=== PATIENT | male | born 1980 | race Caucasian/White ===

== ENCOUNTER 2022-09-28 07:47 | Emergency (ER) | payer OTHER, SELFPAY ==
[2022-09-28] VITALS (28 sets, daily range): BP systolic 121–162; BP diastolic 70–94; PULSE 48–68; RESP 14–21; TEMP 36.9; O2SAT 95–100
--- NOTE | ~2022-09-28 | XR_ITS ---
EXAMINATION: XR chest 2V DATE: 09/28/2022 08:14 INDICATION: Right-sided chest pain TECHNIQUE: PA and lateral views of the chest are obtained. COMPARISON: None available FINDINGS: The lungs are free of acute opacities. No pleural effusion or pneumothorax. The cardiomedia stinal silhouette is normal. The visualized bones and soft tissues are unremarkable. IMPRESSION: 1. No acute cardiopulmonary abnormality. Reviewed, dictated and finalized at location L. URE WRITER
--- NOTE | 2022-09-28 07:49 | ECG_ITS ---
Measurements Intervals [place] Rate: 59 P: -4 DE: 153 QRS: 32 QRSD: 96 T: 42 QT: 400 QTc: 398 Interpretive Statements SINUS BRADYCARDIA NO PREVIOUS ECG AVAILABLE FOR COMPARISON Electronically Signed On 09-28-2022 14:55:08 [employer]OU[employer] SPECIALIST by Lorna Suh M.D.
[2022-09-28 08:04] LABS: Basophils Percent Auto 0.6 % (0.2-1.2); Eosinophils Absolute Auto 0.1 K/mm3 (0-0.3); Eosinophils Percent Auto 1.2 % (0-4.4); Hematocrit 44.5 % (42.0-52.0); Hemoglobin 14.6 g/dL (14.0-18.0); Immature Granulocyte Absolute 0.01 K/mm3 (0.00-0.031); Immature Granulocyte Percent A 0.1 % (0-0.5); Lymphocytes Percent Auto 26.2 % (18.3-44.2); Mean Corpuscular HGB Conc 32.8 g/dl (32-36); Mean Corpuscular Hemoglobin 28.7 pg (26-34); Mean Corpuscular Volume 87.4 fl (80-100); Monocytes Absolute Auto 0.4 K/mm3 (0.1-0.6); Monocytes Percent Auto 5.8 % (2.6-8.5); Neutrophils Absolute Auto 4.8 K/mm3 (1.3-6.7); Neutrophils Percent Auto 66.1 % (45.5-73.1); Platelet Count Result 273 k/mm3 (150-375); Red Blood Count 5.09 M/mm3 (4.6-6.20); Red Cell Distribution Width 13.4 % (11.5-14.5); White Blood Count 7.3 K/mm3 (4.5-10.0)
[2022-09-28 08:14] LABS: Prothrombin Time 13.1 Seconds (11.1-14.7)
[2022-09-28 08:15] LABS: Partial Thromboplastin Time 26.7 SECONDS (22.3-36.8)
[2022-09-28 08:24] LABS: Alanine Aminotransferase 32 U/L (6-50); Albumin Level 4.3 g/dL (3.5-5.1); Alkaline Phosphatase 101 U/L (38-126); Anion Gap 7 mmol/L (8-16); Aspartate Amino Transferase 37 U/L (17-59); Bilirubin,Total 0.7 mg/dL (0.2-1.3); Blood Urea Nitrogen 10 mg/dL (9-20); Calcium 8.4 mg/dL (8.4-10.2); Carbon Dioxide 27 mmol/L (22-30); Chloride 106 mmol/L (98-107); Estimated CRCL calculation 175 ml/min; Estimated Glomerular Filt Rate > 60; Glucose 96 mg/dL (65-110); Lipase 67 U/L (23-300); Potassium 3.9 mmol/L (3.4-5.0); Sodium 140 mmol/L (137-145)
[2022-09-28 08:25] LABS: Troponin I < 0.012 ng/mL (0.000-0.034)
[2022-09-28] MEDS: ASPIRIN 81 MG CHEWABLE TABLET 324 MG PO (08:26)
--- NOTE | 2022-09-28 10:13 | ED.GENADULT ---
HPI - General Adult General Chief complaint: Chest Pain Stated complaint: chest pain with SOB Time Seen by Provider: 09/28/22 08:18 History of Present Illness HPI narrative: 42-year-old male presented to the emergency department for evaluation of chest pain. Patient states 30 minutes prior to arrival he was driving in his car when he had a short lasting right-sided chest pain. Patient states the pain was just a flash of pain. Patient states the pain itself did not radiate to his neck back or arms. Patient states he did feel flushed after the initial pain. Patient denies any associated nausea vomiting or diaphoresis. Patient denies any associated shortness of breath. Patient states when he does take a deep breath that he does have some residual right-sided chest tightness but denies any current pain. At rest patient denies any chest tightness. Patient did have a stress test approximately 10 years ago when he was diagnosed with atrial flutter. Patient has not had cardiac follow-up since then patient states he no longer takes the atenolol he was prescribed for his atrial flutter at the time. Patient denies any prior history of PE DVT, patient denies any recent long car rides or plane trips. Patient denies any recent surgeries, hormone replacement or falls or injuries. Patient states he is not diabetic, has no history of high cholesterol or hypertension. Related Data Allergies Allergy/AdvReac Type Severity Reaction Status Date / Time No Known Allergies Allergy Mild Verified 09/28/22 07:48 Review of Systems Review of Systems: CONSTITUTIONAL: Denies fever, chills, or sweats. EYES: Denies visual changes, redness, or discharge. ENT: Denies rhinorrhea, congestion, sore throat, or otalgia. CARDIOVASCULAR: See HPI RESPIRATORY: Denies cough or dyspnea. GASTROINTESTINAL: Denies abdominal pain, nausea, vomiting, or diarrhea. GENITOURINARY: Denies dysuria or hematuria. SKIN: Denies rash or itching. MUSCULOSKELETAL: Denies back pain, joint pain, or myalgia. NEUROLOGIC: Denies headache, numbness, or weakness. [facility] Past Medical History Medical History BMI 45.0-49.9, adult Body mass index (BMI) 40.0-44.9, adult Depression Gastroesophageal reflux disease without esophagitis Neck pain Family History Family History Other Diabetes mellitus Family history of lung cancer Hypertension Social History Social History Smoking status: Never smoker Second hand tobacco smoke exposure: No Alcohol intake: former Substance use: never Substance use type: does not use Exam Narrative: APPEARANCE: Well appearing, no pain, no distress, well-nourished. HEAD: normocephalic, atraumatic. EYES: PERRLA/EOMI, conjunctivae clear. NOSE: Normal no drainage EARS:TMS clear with good light reflex. THROAT: Pharynx clear, no exudate. NECK: Supple. No adenopathy, no masses. RESPIRATORY: Airway patent, respirations nonlabored. Clear to auscultation bilaterally, no rales, rhonchi, wheezing. CARDIOVASCULAR: Regular rate and rhythm without murmurs rubs or gallops. ABDOMINAL: Soft, nontender, nondistended, normal bowel sounds MUSCULOSKELETAL: Moves all extremities. Strength/ROM intact, No edema, No calf tenderness. NEURO: Alert. Cranial nerves II through XII intact. Good gait. Good coordination SKIN: Warm, dry. Normal Color PSYCHIATRIC: Normal affect/mood. Course Course Emergency Course: 42-year-old male presented to the emergency department for evaluation of short lasting chest pain. Differential diagnosis for the patient's symptoms did include but were not limited to pneumonia, costochondritis, PE, ACS, pneumothorax. patient's EKG showed normal sinus rhythm with no evidence of acute STEMI. Patient was afebrile with no leukocytosis. Patient did have negative serial troponins. Patient
[2022-09-28 11:16] LABS: Troponin I < 0.012 ng/mL (0.000-0.034)
== END 2022-09-28 12:26 | disposition home or self-care (01) ==
PROVIDERS: Emergency Provider Emergency Medicine; PCP Family Medicine
DX: R07.89 Other chest pain (principal); K21.9 Gastro-esophageal reflux disease without esophagitis; R00.1 Bradycardia, unspecified
CPT/HCPCS: 36415; 71046; 80053; 83690; 84484; 85025; 85610; 85730; 93005; 99284; A9270

== ENCOUNTER 2024-04-30 14:17 | Outpatient (CLI) | payer BC, SELFPAY ==
--- NOTE | 2024-04-30 14:37 | ECHO_ITS ---
Patient Info Name: Kwame Sharma Age: 44 years : 1980 Gender: Male Ht: 79 in Wt: 420 lbs BSA: 3.34 m2 HR: 61 bpm BP: 115 / 79 mmHg Heart Rhythm: Sinus Rhythm Technical Quality: Fair Exam Date: 04/30/2024 2:51 PM Exam Location: Echo Lab Patient Status: Outpatient Admit Date: 04/30/2024 Staff Ordering Physician: Barbara Winkler PAC Grease Buffer: Margie Vang RDCS Attending Provider: Barbara Winkler Referring Physician: Peterson ALVAREZ; Exam Type: CA echo dop color flow w con Study Info Indications R06.02 - Shortness of breath Complete two-dimensional, color flow and Doppler transthoracic echocardiogram is performed with contrast to opacify the left ventricle and to improve the deliniation of the left ventricle endocardial borders. Contrast/Agitated Saline Contrast/Ag. Saline: Definity Amount: 2.00 ml Administered By: Margie Vang RDCS Existing IV Access: No New IV Access: Left Site Condition: IV removed Summary 1. Definity contrast administered improved wall motion interpretation. 2. Left ventricular chamber dimension is normal. 3. Left ventricular systolic function is normal, estimated at 60-65%. 4. The left ventricular diastolic function is grade I diastolic dysfunction. 5. E/e' 5 is not elevated. 6. There is trace tricuspid valve regurgitation. 7. No pulmonary hypertension, estimated pulmonary arterial systolic pressure is 27 mmHg. Left Ventricle E/e' 5 is not elevated. Definity contrast administered improved wall motion interpretation. Left ventricular chamber dimension is normal. Left ventricular systolic function is normal, estimated at 60-65%. The left ventricular diastolic function is grade I diastolic dysfunction. Right Ventricle Right ventricular systolic function is normal and with normal TAPSE 3.0 cm. Right ventricular chamber dimension is normal. Left Atria Left atrial chamber dimension is normal. Right Atria Right atrial chamber dimension is normal. Aortic Valve The aortic valve is trileaflet. There is no aortic valve stenosis. There is no aortic valve regurgitation. Pulmonic Valve There is no pulmonic regurgitation. Mitral Valve There is no mitral valve stenosis. There is no mitral valve regurgitation. Tricuspid Valve There is trace tricuspid valve regurgitation. No pulmonary hypertension, estimated pulmonary arterial systolic pressure is 27 mmHg. Pericardium/Pleural There is no pericardial effusion. Inferior Vena Cava Normal inferior vena cava with >50% collapse upon inspiration consistent with normal right atrial pressure, 5 mmHg. Aorta The aortic root size at the sinus of Valsalva is normal. Left Ventricular Outflow Tract Name Value Normal LVOT 2D LVOT Diameter 2.20 cm LVOT Doppler LVOT Peak Gradient 5 mmHg LVOT Mean Gradient 2 mmHg LVOT VTI 23.73 cm LVOT VTI/AV VTI Ratio 0.75 LVOT Stroke Volume 90.25 ml LVOT CO 4.32 l/min LVOT CI 1.29 L/min/m2 Pulmonic Valve ------
[2024-04-30] MEDS: PERFLUTREN LIPID MICROSPHERES 1.5 ML VIAL DILUTED TO 10 ML TOTAL VOLUME IV PUSH (15:25)
--- NOTE | 2024-04-30 15:47 | IVDEFINITY ---
Prior to administration of IV Definity the patient was educated on the risks and benefits of the imaging enhancing agent including potential adverse side effects. The patient verbalized understanding. Allergies were verified. No exclusion criteria were identified and at least one of the following inclusion criteria were met: 1) physician request, 2) patient technically difficult to image (per the [place] [employer]chocardi[employer] guidelines of two or more segments not discernable within the apical view), or 3) questionable left ventricular function. ?
--- NOTE | 2024-04-30 15:47 | IVDEFINITY ---
Prior to administration of IV Definity the patient was educated on the risks and benefits of the imaging enhancing agent including potential adverse side effects. The patient verbalized understanding. Allergies were verified. No exclusion criteria were identified and at least one of the following inclusion criteria were met: 1) physician request, 2) patient technically difficult to image (per the [place] [employer] Echocardi[employer] guidelines of two or more segments not discernable within the apical view), or 3) questionable left ventricular function. ?
--- NOTE | 2024-05-05 17:03 | WPDHOLTEREM ---
Holter/Event Monitor Holter/Event Monitor Date of procedure: 04/30/24 Holter/Event Procedure: 48 Hr Holter Monitor Indications: Shortness of breath Conclusion: 1. 48 hour holter monitor on 04/30/24. 2. Predominant rhythm is sinus rhythm. HR range 44-140 bpm; average HR 67 bpm. HR at 44 bpm was at 03:38. HR at 140 bpm was at 13:56. 3. There are 36 premature supraventricular complexes. There is 1 episode of atrial tachycardia at 130 bpm lasting 7 beats at 21:58. 4. No premature ventricular complexes. No ventricular tachycardia. 5. No sinoatrial or atrioventricular blocks. No significant pauses greater than 2 seconds. 6. Patient reports symptom of flutter which demonstrates sinus rhythm at 65 bpm.
== END 2024-04-30 14:18 | disposition home or self-care (01) ==
PROVIDERS: PCP Family Medicine; Visit Provider Physician Assistant Medical
DX: R00.2 Palpitations (principal); R06.02 Shortness of breath; R07.9 Chest pain, unspecified; Z86.79 Personal history of other diseases of the circulatory system
CPT/HCPCS: 93225; 93226; C8929; Q9957

== ENCOUNTER 2024-05-04 09:45 | Emergency (ER) | payer BC, SELFPAY ==
--- NOTE | ~2024-05-04 | XR_ITS ---
EXAMINATION: XR ankle RT min 3V DATE: 05/04/2024 10:14 INDICATION: Right ankle pain. Fall. TECHNIQUE: 4 views of right ankle were obtained. COMPARISON: None. FINDINGS: Alignment is normal. There is a punctate chip fracture of distal tip of fibula. 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 There are enthesophytes at the posterior and plantar aspects of calcaneal tuberosity. There is ankle soft tissue swelling. IMPRESSION: 1. Punctate chip fracture of distal tip of fibula. Reviewed, dictated and finalized at location A.
--- NOTE | ~2024-05-04 | XR_ITS ---
EXAMINATION: XR wrist LT min 3V DATE: 05/04/2024 10:14 INDICATION: Left wrist pain. Fall. TECHNIQUE: 4 views of left wrist were obtained. COMPARISON: None. FINDINGS: Alignment is normal. There is a avulsion fracture of dorsal pole of triquetrum. Joint space s are normal. IMPRESSION: 1. Avulsion fracture of dorsal pole of triquetrum. Reviewed, dictated and finalized at location A.
[2024-05-04 09:55] VITALS: BP 149/85; PULSE 69; RESP 16; TEMP 37.7; O2SAT 98
--- NOTE | 2024-05-04 10:40 | ED.GENADULT ---
HPI - General Adult General Chief complaint: Extremity Injury, Upper Stated complaint: FALL Source: patient Mode of arrival: ambulatory Limitations: no limitations History of Present Illness HPI narrative: Patient presents for evaluation after experiencing a fall yesterday. He indicates he stepped on a wall not felt to the ground. He had is head. No loss of consciousness. He is not on blood thinners. He had some nausea initially but that resolved. He now has an abrasion to the right knee and reports pain and swelling in the left wrist and right ankle. He has not been taking any medication to assist with his symptoms. He rates his pain 3/10 in severity. Reports decreased range of motion in the left wrist. He is right-hand dominant. Date of last tetanus unknown. Related Data Home Medications Medication Instructions Recorded Confirmed paroxetine HCl 40 mg tablet 30 mg PO DAILY 05/04/24 05/04/24 Allergies Allergy/AdvReac Type Severity Reaction Status Date / Time No Known Allergies Allergy Mild Verified 05/04/24 10:01 Review of Systems Review of Systems: CONSTITUTIONAL: Denies fever, chills, or sweats. EYES: Denies visual changes, redness, or discharge. ENT: Denies rhinorrhea, congestion, sore throat, or otalgia. CARDIOVASCULAR: Denies chest pain, palpitations, or edema. RESPIRATORY: Denies cough or dyspnea. GASTROINTESTINAL: Denies abdominal pain, nausea, vomiting, or diarrhea. GENITOURINARY: Denies dysuria or hematuria. SKIN: Reports abrasion to anterior aspect of right knee MUSCULOSKELETAL: Reports left wrist and right ankle pain NEUROLOGIC: Denies headache, numbness, dizziness, or weakness. PSYCHIATRIC: Denies anxiety or depression. [facility] Past Medical History Medical History BMI 45.0-49.9, adult Body mass index (BMI) 40.0-44.9, adult Depression Gastroesophageal reflux disease without esophagitis Neck pain Surgical History Surgical History No pertinent past surgical history Family History Family History Other Diabetes mellitus Family history of lung cancer Hypertension Social History Social History Smoking status: Never smoker Second hand tobacco smoke exposure: No Alcohol intake: former Substance use: never Substance use type: does not use Exam Narrative: GENERAL: Well-appearing, well-nourished, and in no acute distress. HEAD: Normocephalic, atraumatic. EYES: PERRLA and EOMI. ENT: Nares clear, no rhinorrhea or epistaxis. Mucous membranes moist. Oropharynx without tonsillar hypertrophy exudate or other lesions. Bilateral TMs pearly weiss nonbulging NECK: Supple. No adenopathy or masses. No carotid bruits or JVD CHEST: Clear to auscultation. No respiratory distress. No wheezes rales or rhonchi HEART: Regular rate and rhythm. No murmur heard. Normal peripheral pulses. ABDOMEN: Soft, nontender, nondistended, normal active bowel sounds. EXTREMITIES:There is tenderness in the left wrist with swelling present. Decreased ROM of left wrist but sensation intact. There is tenderness over the lateral aspect of the right ankle. There is swelling present. No crepitus or deformity. Able to dorsi and plantarflex the right foot. SKIN: Warm, dry, no rash. NEURO: No focal deficits. Alert and oriented x3. PSYCH: Normal mood and affect. Course Course Emergency Course: This is a 44-year-old male who presented for evaluation of left wrist and right ankle pain following a fall. X-ray of the left wrist showed avulsion fracture of dorsal pole of triquetrum. Placed in volar splint. He declined sling. X ray of the right ankle showed punctate chip fracture of distal tip of fibula. Unfortunately we do not have walking boot. Did not splint a
[2024-05-04] MEDS: TETANUS,DIPHTHERIA,AC PERTUSSIS ADULT (0.5 ML) BOOSTRIX IM (10:54)
== END 2024-05-04 11:06 | disposition home or self-care (01) ==
PROVIDERS: Emergency Provider Nurse Practitioner; PCP Family Medicine
DX: S62.112A Displaced fracture of triquetrum [cuneiform] bone, left wrist, initial encounter for closed fracture (principal); S82.831A Other fracture of upper and lower end of right fibula, initial encounter for closed fracture; W19.XXXA Unspecified fall, initial encounter; Z23 Encounter for immunization; K21.9 Gastro-esophageal reflux disease without esophagitis; F32.A Depression, unspecified
CPT/HCPCS: 29125; 73110; 73610; 90471; 90715; 99214; G0463